=== PATIENT | female | born 2000 | race Caucasian/White ===

== ENCOUNTER 2023-08-08 13:41 | Inpatient (IN) | payer OTHER ==
[~2023-08-08] VITALS: Ht 170.2 cm; Wt 130.5 kg
[2023-08-17] VITALS (48 sets, daily range): BP systolic 100–147; BP diastolic 56–99; PULSE 69–114; TEMP 97.9–98.5
[2023-08-17] MEDS ORDERED: LR & Oxytocin 500 ML IV SCH (09:45)
[2023-08-17] MEDS ORDERED: LR 1,000 ML IV SCH (09:45)
--- NOTE | 2023-08-17 10:15 | NUR ---
FHR PROLONGED DECEL LASTING 3-4 MIN INTO THE 100-110'S, PT SHOWN NOT ANGIE ON TOCO, PT VS STABLE SITTING HIGH FOWLERS. THIS RN CHANGES PT POSITION TO WEDGE RIGHT.
[2023-08-17] MEDS ORDERED: PRENATAL TABLET PO (10:39)
[2023-08-17 11:23] LABS: EOS # 0.1 K/mm3 (0.0-0.7); GRAN # 2.3 K/mm3 (1.4-6.5); GRAN % 58.7 % (42.2-75.2); HEMOGLOBIN 10.6 g/dl (12.5-16.0); LYMPH # 1.4 K/mm3 (1.2-3.4); LYMPH % 33.8 % (20.0-51.0); MEAN CELL VOLUME 88 fl (80.0-100.0); MEAN CORPUSCULAR HEMOGLOBIN 29 pg (27-31); MEAN CORPUSCULAR HGB CONC 32 g/dl (33.0-37.0); MEAN PLATELET VOLUME 11.6 fl (7.4-10.4); MONO # 0.2 K/mm3 (0.1-0.6); MONO % 4.5 % (1.7-9.3); PLATELET COUNT 161 K/mm3 (130-400); RED BLOOD COUNT 3.72 M/mm3 (4.10-5.30); REDCELL DISTRIBUTION WIDTH-CV 13.1 % (11.5-14.5)
[2023-08-17 11:25] LABS: HEMATOCRIT 32.9 % (37.0-47.0)
--- NOTE | 2023-08-17 12:00 | NUR ---
PT AMBULATORY TO BATHROOM, EFM CAT 1 AND PT VS STABLE BEFORE DISCONNECTING EFM AND TOCO.
--- NOTE | 2023-08-17 12:36 | NUR ---
1154 PT AMBULATORY TO BATHROOM 1210 THIS RN CONNECTS EFM AND TOCO, UNABLE TO TRACE FHR DUE TO MATERNAL POSITION AND HABITUS, THIS RN AT PT BEDSIDE ATTEMPTING TO CHANGE PT POSIITION AND CHANGE LOCATION OF EFM EXTERNAL MONITOR. 1220 CHARGE NURSE CHIDI, AND NURSE POORNIMA HELPING THIS RN AT BEDSIDE CHANGE PT POSITION AND EFM MONITOR TO TRACE FHR. 1230 PITOCIN STOPPED DUE TO NO TRACING OF FHR. THIS RN, CHARGE NURSE CHIDI, AND NURSE POORNIMA CONTINUED TO CHANGE PT POSIION AND TRACE EFM. 1236 FHR FOUND MIDLINE LOWER POSITION UNDER MATERNAL UMBILICUS. 1240 FHR BASELINE 110'S, MATERNAL POSITION CHAIR SITTING UPRIGHT. PT VS STABLE, EFM CAT 1, PT REPORTS "NOT FEELING MUCH PAIN FROM CONTRACTIONS YET", NO LOF, NO VAGINAL BLEEDING/SPOTTING, POSITIVE MOVEMENT.
--- NOTE | 2023-08-17 13:30 | NUR ---
UNABLE TO TRACE TOCO DUE TO MATERNAL POSITION AND HABITUS. AT PT BEDSIDE SVE 3/50/-2 AND AROM 1327, CLEAR FLUID, PT TOLERATED WELL. ALSO PLACED FSE AT 1328 DUE TO TROUBLE TRACING EFM. PT AGREES TO FSE AND IS EDUCATED BY BEFORE INSERTION. PT VS STABLE, FHR TRACING BEFORE FCE IS BASELINE 110'S WITH GOOD ACCELS AND NO DECELS.
[2023-08-17] MEDS ORDERED: Naloxone 0.4 MG/ML VIAL IV PRN ×2 (13:45→23:45)
[2023-08-17] MEDS ORDERED: diphenhydrAMINE 50 MG/ML 1 ML VIAL IV PRN (13:45)
[2023-08-17] MEDS ORDERED: Ondansetron 4 MG/2 ML VIAL IV PRN (13:45)
[2023-08-17] MEDS ORDERED: ePHEDrine 50 MG/10 ML VIAL IV PRN (13:45)
[2023-08-17] MEDS ORDERED: diphenhydrAMINE 25 MG CAP PO PRN (13:45)
--- NOTE | 2023-08-17 14:00 | NUR ---
PT REPORTED FEELING "LIKE I'M GOING TO BE SICK, COULD I HAVE SOME MEDICINE TO HELP?" THIS RN REPORTS TO OF PT NAUSEA. VERBAL ORDER ZOFRAN 8MG/4ML.
--- NOTE | 2023-08-17 14:30 | NUR ---
1418 PT AMBULATORY TO BATHROOM, EFM CAT 1, PT VS STABLE BEFORE EFM AND TOCO DISCONNECTED. 1423 PT BACK AT BEDSIDE, EFM AND TOCO CONNECTED PER THIS RN.
--- NOTE | 2023-08-17 14:45 | NUR ---
UNABLE TO TRACE TOCO DUE TO MATERNAL POSITION AND HABITUS, THIS RN AT BEDSIDE ADJUSTING TOCO TO TRACE. THIS RN PALPATES CTX 2-3MIN APART LASTING 60-90SEC. PT VS STABLE.
--- NOTE | 2023-08-17 15:15 | NUR ---
UNABLE TO ACCURATELY TRACE TOCO DUE TO MATERNAL POSITION AND HABITUS. THIS RN AT PT BEDSIDE ATTEMPTING TO TRACE TOCO, PT VS STABLE, FHR BASELINE 110.
--- NOTE | 2023-08-17 17:30 | NUR ---
PITOCIN NOT INCREASED BECAUSE PT CONTRACTIONS UNABLE TO ADEQUATELY TRACE ON MONITOR, THIS RN AT BEDSIDE ATTEMPTING TO TRACE CTX AND PALPATES CTX Q 2-4 MIN LASTING 60-100 SEC
--- NOTE | 2023-08-17 17:45 | NUR ---
UNABLE TO TRACE CTX DUE TO MATERNAL POSITION AND HABITUS, THIS RN AT PT BEDSIDE PALPATING FOR CTX. PALPATED CTX Q 2-3MIN LASTING 60-90SEC
--- NOTE | 2023-08-17 19:15 | NUR ---
ONE LATE DECEL NOTED ON THIS TRACING, AFTER THIS RN PLACED PT ON HER BACK FOR A CERVICAL EXAM. GOOD RECOVERY AFTER PT REPOSITIONED AFTER EXAM.
--- NOTE | 2023-08-17 19:30 | NUR ---
VARIABLE DECEL OBSERVED ON THIS TRACING, RN REPOSITIONS PT TO HER LEFT SIDE, GOOD RECOVERY NOTED. WHILE AT THE BEDSIDE, I OBSERVE ANOTHER DECEL IN HEART RATE TO THE 100'S AND PT IS REPOSITIONED TO HER RIGHT SIDE WITH A PILLOW BETWEEN HER KNEES. HEART RATE RECOVERS TO THE 110'S WITH GOOD VARIABILITY. DR KAPLAN MADE AWARE OF PT AND STATUS.
--- NOTE | 2023-08-17 19:45 | NUR ---
PT REMAINS ON HER RIGHT SIDE, PILLOW BETWEEN HER KNEES. PT REPORTS FEELING SLIGHTLY NAUSEOUS, SO ZOFRAN 4 MG GIVEN. RN REMAINS AT THE BEDSIDE MONITORING MATERNAL AND STATUS.
--- NOTE | 2023-08-17 20:00 | NUR ---
RN CONTINUES TO HAVE DIFFICULTY TRACING CTX. MULTIPLE ATTEMPTS ADJUSTING THE TOCO WITHOUT SUCCESS. DR KAPLAN AT THE BEDSIDE. DISCUSSING WITH PT THE DIFFICULTY THE RN IS HAVING IN TRACING THE CTX AND THAT SHE WOULD LIKE TO PLACE AN IUPC. PT AGREEABLE TO THIS PLAN.
--- NOTE | 2023-08-17 20:30 | NUR ---
PT CURRENTLY IN HANDS AND KNEES TO AID IN DILATION OF THE CERVIX. PT ALSO HAS REQUESTED AN EPIDURAL AND IS WAITING FOR ANESTHESIA TO ARRIVE. RN REMAINS AT BEDSIDE MONITORING MATERNAL AND STATUS.
--- NOTE | 2023-08-17 20:45 | NUR ---
PT SITTING UPRIGHT ON THE SIDE OF THE BED FOR EPIDURAL PLACEMENT AT THIS TIME.
[2023-08-17] MEDS ORDERED: ROPivacaine PF 0.2% 200 ML IV ONE (20:48)
[2023-08-17] MEDS ORDERED: traZODone 50 MG TAB PO PRN (21:00)
--- NOTE | 2023-08-17 23:00 | NUR ---
VARIABLE DECELS OBSERVED DURING THIS TRACING, PT SITTING IN JENNIFER WITH HER LEGS FROGGED AT THIS TIME TO HELP WITH DESCENT. RN AT THE BEDSIDE.
--- NOTE | 2023-08-17 23:35 | NUR ---
2320: SVE OBTAINED AT THIS TIME, RN BELIEVES PT TO BE COMPLETE AND FETUS TO BE AT 0 STATION. THIS RN ASKS ANOTHER RN TO CHECK PT TO CONFIRM AND WHEN IN ROOM OBSERVED FETUS TO BE BEGINNING TO CROWN. 2325: DR KAPLAN CALLED FOR DELIVERY AT THIS TIME. THIS RN AND OTHER STAFF AT THE BEDSIDE PREPARING FOR DELIVERY. 2327: LIVE FEMALE FETUS DELIVERED BY , CAUGHT BY Brett AMAYA RN. PLACED ON THE BED, BULB SUCTIONED, DRIED AND CORD CLAMPED AND CUT BY Brett AMAYA RN. THEN PLACED SKIN TO SKIN WITH MOM. 2330: DR KAPLAN IN THE ROOM AT THIS TIME, PL[facility]ENTA SPONTANEOUSLY DELIVERING AT THIS TIME ALSO. DR KAPLAN ASSISTS IN DELIVERING THE PL[facility] AND BEGINS ASSESSING PT FOR ANY COMPLICATIONS.
[2023-08-17] MEDS ORDERED: Witch Hazel 50% Pads Bulk TUB TP PRN (23:45)
[2023-08-17] MEDS ORDERED: Loratadine 10 MG TAB PO PRN (23:45)
[2023-08-17] MEDS ORDERED: Phenylephrine/Mineral Oil/Petrolatum 57 GM TUBE RC PRN (23:45)
[2023-08-17] MEDS ORDERED: Acetaminophen 500 MG TAB PO SCH (23:45)
[2023-08-17] MEDS ORDERED: Magnes Hydrox (MOM) 80 MG/ML 30 ML CUP PO PRN (23:45)
[2023-08-17] MEDS ORDERED: Mag/Al Hydrox/Simeth Susp 30 ML CUP PO PRN (23:45)
[2023-08-17] MEDS ORDERED: Ibuprofen 800 MG TAB PO SCH (23:45)
[2023-08-17] MEDS ORDERED: Measles/Mumps/Rubella Virus Vaccine Live w Diluent 0.5 ML VIAL SQ SCH (23:45)
[2023-08-18] VITALS (11 sets, daily range): BP systolic 119–138; BP diastolic 61–84; PULSE 75–107; TEMP 97.2–98.4
[2023-08-18] MEDS ORDERED: Sennosides/Docusate 8.6-50 MG TAB PO SCH (08:00)
--- NOTE | 2023-08-18 10:10 | NUR ---
0730 RN AT BEDSIDE PT AMBULATES TO BATHROOM. PATIENT STABLE, SLOW WALKING. PT VOIDED WITHOUT HAT IN TOILET. PT STATES NO ISSUES VOIDING. PT REMINDED TO USE HAT. 0930 PT REQUESTS TO TAKE SHOWER. PT ATTEMPTS TO VOID FOR THIRD TIME. OUTPUT 100MLS. RN ASKED PT TO VOID ONE MORE TIME TO ENSURE GOOD OUTPUT BEFORE REMOVING IV. PT AGREES TO REQUEST. PT RESTING COMFORTABLY IN BED.
--- NOTE | 2023-08-18 10:24 | NUR ---
Initial visit attempt: Hearing Testing in progress, Inspecting Engineer left card offering family congratulations and God's blessings for the of their daughter. Also, information regarding the availability of Spiritual Care is included on the card.
[2023-08-18] MEDS ORDERED: Ibuprofen 800 MG TAB PO SCH (21:45)
[2023-08-19 07:15] VITALS: BP 126/73; PULSE 74; TEMP 97.3
[2023-08-19] MEDS ORDERED: LOVENOX 4040 MG/0.4 SQ (08:30)
--- NOTE | 2023-08-19 12:00 | NUR ---
PT SIGNED DISHCHARGE PAPERWORK AND OBTAINED DISCHARGE INFORMATION. PT AND PT SPOUSE READY TO LEAVE WITH INFANT CHECKED PER THIS RN SAFELY IN CAR SEAT. THIS RN ACCOMPANIES PT AND SPOUSE WHILE AMBULATING OFF UNIT WITH BABY GIRL. PT AND SPOUSE SMILING AND SAFE IN CAR BEFORE LEAVING.
== END 2023-08-19 12:00 | disposition home or self-care (01) | DRG 806 ==
LOC: LDR 08-16 13:40 → OB 08-17 09:40 → LDR 08-17 13:58 → OB 08-18 05:10
PROVIDERS: ADMIT Student in an Organized Health Care Education/Training Program
PROC: 10E0XZZ Delivery of Products of Conception, External Approach (ICD-10-PCS; principal; 2023-08-17)
PROC: 10907ZC Drainage of Amniotic Fluid, Therapeutic from Products of Conception, Via Natural or Artificial Opening (ICD-10-PCS; 2023-08-17)
PROC: 3E033VJ Introduction of Other Hormone into Peripheral Vein, Percutaneous Approach (ICD-10-PCS; 2023-08-17)
DX: O26.643 Intrahepatic cholestasis of pregnancy, third trimester (principal); O10.92 Unspecified pre-existing hypertension complicating childbirth; Z37.0 Single live birth; E78.79 Other disorders of bile acid and cholesterol metabolism; K76.89 Other specified diseases of liver; O99.214 Obesity complicating childbirth; O76 Abnormality in fetal heart rate and rhythm complicating labor and delivery; Z3A.36 36 weeks gestation of pregnancy; Z86.718 Personal history of other venous thrombosis and embolism; Z86.711 Personal history of pulmonary embolism
CPT/HCPCS: J1650; J2405; J2590; J2795; J7120